=== PATIENT | female | born 1970 | race Caucasian/White ===

== ENCOUNTER 2018-04-22 06:23 | Day surgery (SDC) | payer OTHER ==
[~2018-04-22] VITALS: Ht 175.3 cm; Wt 109.8 kg
[~2018-04-22 06:23] MED LIST: ALEVE220 M2 PO; PRILOSEC20 MG PO; TOPROL XL25 MG PO; VITAMIN D31000 UNI2 PO
[2018-04-22 06:53] VITALS: BP 144/92
[2018-04-22 07:33] LABS: ALBUMIN 4.5 G/DL (3.2-4.8); ALKALINE PHOSPHATASE 76 IU/L (3-129); ALT (GPT) 12 IU/L (3-49); AST (GOT) 16 IU/L (2-34); CHLORIDE 103 MEQ/L (99-109); CREATININE 0.8 MG/DL (0.6-1.3); GFR ESTIMATE (CALCULATED) > 59 mL/min/; GLUCOSE 81 mg/dL (70-99); POTASSIUM 4.3 MEQ/L (3.7-5.4); SODIUM 139 MEQ/L (136-147); TOTAL BILIRUBIN 0.4 MG/DL (0.0-1.0); TOTAL PROTEIN 7.1 G/DL (6.4-8.3); UREA NITROGEN (BUN) 23 mg/dL (9-23)
[2018-04-22 09:50] VITALS: BP 142/82
[2018-04-22 10:19] VITALS: BP 140/61
== END 2018-04-22 10:32 | disposition home or self-care (01) ==
LOC: SDC 06:23
PROVIDERS: Obstetrics & Gynecology Gynecology
DX: N92.0 Excessive and frequent menstruation with regular cycle (principal); Q51.2 Other doubling of uterus; E66.9 Obesity, unspecified; Z68.38 Body mass index [BMI] 38.0-38.9, adult
CPT/HCPCS: 80053; 88305; 93005; J0131; J0330; J0690; J1100; J1885; J2250; J2405; J3010; Q0175